=== PATIENT | female | born 1990 | race African-American/Black ===

== ENCOUNTER 2016-11-21 19:32 | Emergency (ER) | payer MEDICAID ==
[~2016-11-21 19:32] MED LIST: METR500T10 PO
[2016-11-21 19:34] VITALS: BP 109/62; PULSE 81; RESP 16; TEMP 98.6; O2SAT 100
== END 2016-11-21 20:53 | disposition left against medical advice (07) ==
LOC: NED 19:32
DX: R10.9 Unspecified abdominal pain (principal)
CPT/HCPCS: 99281

== ENCOUNTER 2016-12-11 17:23 | Emergency (ER) | payer OTHER, MEDICAID ==
[~2016-12-11] VITALS: Ht 167.6 cm; Wt 80.0 kg
[2016-12-11 17:25] VITALS: BP 113/68; PULSE 78; RESP 16; TEMP 98.5; O2SAT 100
--- NOTE | 2016-12-11 17:59 | PD ---
HPI Chief Complaint: Abdominal Pain Time Seen by Provider: 17:55 Travel History International Travel<30 days: No Contact w/Intl Traveler<30days: No Traveled to known affect area: No History of Present Illness HPI 25-year-old female patient with no significant past medical issues, presents to the ER today with 2 weeks history of nausea, lower abdominal pains, dysuria, which she currently rates at a 5 out of 10. She states that she is here today because it has not gone away. She denies any fevers, has had occasional vomiting, denies diarrhea and other symptoms. Modifying Factors: None Associated Signs & Symptoms: Nausea, vomiting, abdominal pains, urinary symptoms for 2 weeks Risk Factors: None PFSH Past Medical History Diabetes: Yes (WHEN ) Patient Takes Glucophage: No Diminished Hearing: No ?: Unknown LMP: OCTOBER Menopausal: No : 4 Para: 1 Miscarriage: 1 : 1 Dilation and Curettage (D&C): Yes (MOLAR JUL 2012) Past Surgical History Section: Yes Gynecologic Surgery: Yes ( HX X 1) Social History Alcohol Use: No (SOCIALLY) Tobacco Use: No Substance Use: No Allergies-Medications (Allergen,Severity, Reaction): Coded Allergies: Penicillin (Verified Allergy, Severe, HIVES, 12/11/16) Reported Meds & Prescriptions Reported Meds & Active Scripts Active Diflucan (Fluconazole) 150 Mg Tab 150 Mg PO ONCE Zofran Odt (Ondansetron Odt) 4 Mg Tab 4 Mg SL Q6HR PRN Macrobid (Nitrofurantoin Monoh/Nitrofur Macro) 100 Mg Cap 100 Mg PO BID 7 Days Review of Systems Except as stated in HPI: all other systems reviewed are Neg Physical Exam Narrative GENERAL: Well-developed young -[place] female patient currently in mild distress. Awake and oriented 3. SKIN: Focused skin assessment warm/dry. HEAD: Atraumatic. Normocephalic. EYES: Pupils equal and round. No scleral icterus. No injection or drainage. ENT: No nasal bleeding or discharge. Mucous membranes pink and moist. NECK: Trachea midline. No JVD. CARDIOVASCULAR: Regular rate and rhythm. No murmur appreciated. RESPIRATORY: No accessory muscle use. Clear to auscultation. Breath sounds equal bilaterally. GASTROINTESTINAL: Abdomen soft, mild suprapubic tenderness without guarding or rebound, nondistended. Hepatic and splenic margins not palpable. MUSCULOSKELETAL: No obvious deformities. No clubbing. No cyanosis. No edema. NEUROLOGICAL: Awake and alert. No obvious cranial nerve deficits. Motor grossly within normal limits. Normal speech. PSYCHIATRIC: Appropriate mood and affect; insight and judgment normal. Data Data Last Documented VS Vital Signs Date Time Temp Pulse Resp B/P Pulse Ox O2 Delivery O2 Flow Rate FiO2 12/11/16 17:25 98.5 78 16 113/68 100 Room Air Orders Complete Blood Count With Diff (12/11/16 17:50) Comprehensive Metabolic Panel (12/11/16 17:50) Lipase (12/11/16 17:50) Urinalysis - C+S If Indicated (12/11/16 17:50) Iv Access Insert/Monitor (12/11/16 17:50) Ecg Monitoring (12/11/16 17:50) Oximetry (12/11/16 17:50) Sodium Chloride 0.9% Flush (Ns Flush) (12/11/16 18:00) Ed Urine Pregnancytest Poc (12/11/16 17:50) Sodium Chlor 0.9% 1000 Ml Inj (Ns 1000 M (12/11/16 18:00) Ondansetron Inj (Zofran Inj) (12/11/16 18:00) Urine Culture (12/11/16 18:15) Labs Laboratory Tests Test 12/11/16 18:15 White Blood Count 3.8 TH/MM3 Red Blood Count 4.29 MIL/MM3 Hemoglobin 11.6 GM/DL Hematocrit 35.2 % Mean Corpuscular Volume 82.1 FL Mean Corpuscular Hemoglobin 26.9 PG Mean Corpuscular Hemoglobin 32.8 % Concent Red Cell Distribution Width 13.0 % Platelet Count 220 TH/MM3 Mean Platelet Volume 6.9 FL Neutrophils (%) (Auto) 38.5 % Lymphocytes (%) (Auto) 52.5 % Monocytes (%) (Auto) 5.6 % Eosinophils (%) (Auto) 2.5 % Basophils (%) (Auto) 0.9 % Neutrophils # (Auto) 1.5 TH/MM3 Lymphocytes # (Auto) 2.0 TH/MM3 Monocytes # (Auto) 0.2 TH/MM3 Eosinophils # (Auto) 0.1 TH/MM3 Basophils # (Auto) 0.0 TH/MM3 CBC Comment DIFF FINAL Differential Comment Urine Color YELLOW Urine Turbidity HAZY Urine pH 5.5 Urine Specific [place] 1.029 Urine Protein NEG mg/dL Urine Glucose (UA) NEG mg/dL Urine Ketones NEG mg/dL Urine Occult Blood NEG Urine Nitrite NEG Urine Bilirubin NEG Urine Urobilinogen LESS THAN 2.0 MG/DL Urine Leukocyte Esterase LARGE Urine RBC LESS THAN 1 /hpf Urine WBC 9 /hpf Urine Squamous Epithelial 6 /hpf Cells Urine Mucus FEW /lpf Microscopic Urinalysis Comment CULTURE INDICATED Sodium Level 139 MEQ/L Potassium Level 3.5 MEQ/L Chloride Level 106 MEQ/L Carbon Dioxide Level 25.6 MEQ/L Anion Gap 7 MEQ/L Blood Urea Nitrogen 17 MG/DL Creatinine 0.96 MG/DL Estimat Glomerular Filtration 86 ML/MIN Rate Random Glucose 67 MG/DL Calcium Level 8.3 MG/DL Total Bilirubin 0.5 MG/DL Aspartate Amino Transf 16 U/L (AST/SGOT) Alanine Aminotransferase 21 U/L (ALT/SGPT) Alkaline Phosphatase 41 U/L Total Protein 7.5 GM/DL Albumin 3.6 GM/DL Lipase 190 U/L [facility] Medical Decision Making Medical Screen Exam Complete: Yes Emergency Medical Condition: Yes Medical Record Reviewed: Yes Interpretation(s) Laboratory Tests Test 12/11/16 18:15 White Blood Count 3.8 TH/MM3 (4.0-11.0) Mean Corpuscular Hemoglobin 26.9 PG (27.0-34.0) Mean Platelet Volume 6.9 FL (7.0-11.0) Lymphocytes (%) (Auto) 52.5 % (9.0-44.0) Neutrophils # (Auto) 1.5 TH/MM3 (1.8-7.7) Urine Turbidity HAZY (CLEAR) Urine Leukocyte Esterase LARGE (NEG) Urine WBC 9 /hpf (0-5) Urine Mucus FEW /lpf (OCC) Estimat Glomerular Filtration 86 ML/MIN (>89) Rate Random Glucose 67 MG/DL (74-106) Calcium Level 8.3 MG/DL (8.5-10.1) Alkaline Phosphatase 41 U/L (45-117) Differential Diagnosis Nausea, vomiting, lower abdominal discomfort, urinary symptomsUTI versus gastroenteritis versus dehydration versus metabolic issues versus Narrative Course Abdomen is benign and I do not suspect an acute intra-abdominal process. She is not . She does have a UTI which could be causing some of her symptoms. At this point, my plan would be to release her with symptomatic relief and treatment for UTI. Follow-up with primary care physician. Return for worsening in symptoms as necessary. The plan has been discussed with her and she states understanding. Diagnosis Primary Impression: UTI (urinary tract infection) Med/Other Pt SpecificInfo: Prescription(s) given Scripts Fluconazole (Diflucan)150 Mg [id number] Mg PO ONCE #1 TAB Ref 0 Prov:Balbina Avery MD 12/11/16 Ondansetron Odt (Zofran Odt)4 Mg Tab4 Mg SL Q6HR PRN (Nausea/Vomiting) #7 TAB Ref 0 Prov:Balbina Avery MD 12/11/16 Nitrofurantoin Monohydrate Macrocrystals (Macrobid)100 Mg [id number] Mg PO BID 7 Days Ref 0 Prov:Balbina Avery MD 12/11/16 Disposition: 01 DISCHARGE HOME Condition: Stable Balbina Avery MD December 11, 2016 17:58
[2016-12-11] MEDS ORDERED: ONDANSETRON HCL 4 MG/2 ML VIAL IV PUSH ONE (18:00)
[2016-12-11] MEDS ORDERED: SODIUM CHLOR 0.9% 1000 ML INJ 1,000 ML IV ONE (18:00)
[2016-12-11] MEDS ORDERED: SODIUM CHLORIDE 0.9% FLUSH 10 ML FLUSH IV FLUSH PRN (18:00)
[2016-12-11 18:52] LABS: AUTOMATED NEUTROPHIL # 1.5 TH/MM3 (1.8-7.7); BASOPHIL % 0.9 % (0.0-2.0); EOSINOPHIL # 0.1 TH/MM3 (0-0.4); EOSINOPHIL % 2.5 % (0.0-4.0); HEMATOCRIT 35.2 % (35.0-46.0); HEMO FLAGS DIFF FINAL; LYMPH % 52.5 % (9.0-44.0); MEAN CELL VOLUME 82.1 FL (80.0-100.0); MEAN CORPUSCULAR HEMOGLOBIN 26.9 PG (27.0-34.0); MEAN CORPUSCULAR HGB CONC 32.8 % (32.0-36.0); MONO % 5.6 % (0.0-8.0); NEUT % 38.5 % (16.0-70.0); PLATELET COUNT 220 TH/MM3 (150-450); RED BLOOD COUNT 4.29 MIL/MM3 (4.00-5.30); WHITE BLOOD COUNT 3.8 TH/MM3 (4.0-11.0)
[2016-12-11 18:59] LABS: BLOOD, URINE NEG (NEG); COMMENT (UR) CULTURE INDICATED; CULTURE IF INDICATED CULTURE INDICATED; GLUCOSE,URINE NEG (NEG); KETONE, URINE NEG (NEG); MUCUS URINE FEW /lpf (OCC); NITRITE,URINE NEG (NEG); PH, URINE 5.5 (5.0-8.5); SQUAMOUS EPITHELIAL CELL URINE 6 /hpf (0-5); URINE COLOR YELLOW (YELLW/STRAW)
[2016-12-11 19:01] LABS: ANION GAP 7 MEQ/L (5-15); AST (GOT) 16 U/L (15-37); BICARBONATE 25.6 MEQ/L (21.0-32.0); BLOOD UREA NITROGEN 17 MG/DL (7-18); CHLORIDE 106 MEQ/L (98-107); GLOMERULAR FILTRATION RATE 86 ML/MIN (>89); POTASSIUM 3.5 MEQ/L (3.5-5.1); SODIUM (NA) 139 MEQ/L (136-145)
[2016-12-11 19:04] LABS: ALKALINE PHOSPHATASE 41 U/L (45-117); ALT (GPT) 21 U/L (10-53); TOTAL BILIRUBIN ADULT 0.5 MG/DL (0.2-1.0)
[2016-12-11] MEDS ORDERED: MACR100C2 PO (19:32)
[2016-12-11] MEDS ORDERED: ZOFR4TAB3 SL (19:32)
[2016-12-11] MEDS ORDERED: DIFL150T PO (19:34)
== END 2016-12-11 20:06 | disposition home or self-care (01) ==
LOC: NEPD 17:23
DX: N39.0 Urinary tract infection, site not specified (principal); B96.89 Other specified bacterial agents as the cause of diseases classified elsewhere
CPT/HCPCS: 80053; 81001; 83690; 84703; 85025; 87086; 96361; 96374; 99284; J2405; J7030

== ENCOUNTER 2017-05-20 20:33 | Emergency (ER) | payer MEDICAID, OTHER ==
[~2017-05-20] VITALS: Ht 167.6 cm; Wt 85.0 kg
[~2017-05-20 20:33] MED LIST changes: +DIFL150T PO; +MACR100C2 PO; -METR500T10 PO; +ZOFR4TAB3 SL
[2017-05-20 20:55] VITALS: BP 118/67; PULSE 83; RESP 18; TEMP 98.7; O2SAT 100
--- NOTE | 2017-05-20 23:50 | PD ---
HPI Chief Complaint: Abdominal Pain Time Seen by Provider: 23:38 Travel History International Travel<30 days: No Contact w/Intl Traveler<30days: No Traveled to known affect area: No History of Present Illness HPI 26 years old female complains of headache and also low abdominal pain and vaginal discharge. Patient states that she has lower abdominal discomfort and vaginal discharge for the past 6 months. Patient has been seen by personal physician and had Pap smear done which showed positive for HPV. Patient awaiting follow-up appointment. Patient states that she started having aching headache from the back of the head to the front for the past 2 weeks. Patient states that headache is aching headache intermittent headache. Patient denies any visual change. Patient denied nausea vomiting with headache. Patient denies any recent head injury. Patient denies any fever chills. Patient denies any neck pain. Patient denies any nausea vomiting diarrhea. Patient denies any dysuria or frequency. Patient denies any vaginal bleeding. Patient denies any chance of being . PFSH Past Medical History Diabetes: Yes (only gestational) Patient Takes Glucophage: No Diminished Hearing: No Immunizations Current: Yes Tetanus Vaccination: < 5 Years Influenza Vaccination: No ?: Not LMP: 05/12/2017 Menopausal: No : 4 Para: 1 Miscarriage: 1 : 1 Dilation and Curettage (D&C): Yes (MOLAR JUL 2012) Past Surgical History Section: Yes Gynecologic Surgery: Yes ( HX X 1) Social History Alcohol Use: No (SOCIALLY) Tobacco Use: No Substance Use: No Allergies-Medications (Allergen,Severity, Reaction): Coded Allergies: penicillin G (Unverified Allergy, Severe, HIVES, 03/22/17) Reported Meds & Prescriptions Reported Meds & Active Scripts Active Review of Systems General / Constitutional: No: Fever Eyes: No: Visual changes HENT: Positive: Headaches Cardiovascular: No: Chest Pain or Discomfort Respiratory: No: Shortness of Breath Gastrointestinal: No: Abdominal Pain Genitourinary: Positive: Discharge, No: Dysuria Musculoskeletal: No: Pain Skin: No Rash Neurologic: No: Weakness Psychiatric: No: Depression Endocrine: No: Polydipsia Hematologic/Lymphatic: No: Easy Bruising Physical Exam Narrative GENERAL: Well-nourished, well-developed patient. SKIN: Focused skin assessment warm/dry. HEAD: Normocephalic. EYES: No scleral icterus. No injection or drainage. NECK: Supple, trachea midline. No JVD or lymphadenopathy. CARDIOVASCULAR: Regular rate and rhythm without murmurs, gallops, or rubs. RESPIRATORY: Breath sounds equal bilaterally. No accessory muscle use. GASTROINTESTINAL: Abdomen soft, nondistended. Mild tenderness on palpation lower abdomen suprapubic area. No rebound tenderness. No mass. MUSCULOSKELETAL: No cyanosis, or edema. BACK: Nontender without obvious deformity. No CVA tenderness. Neurologic exam normal. Data Data Last Documented VS Vital Signs Date Time Temp Pulse Resp B/P (MAP) Pulse Ox O2 Delivery O2 Flow Rate FiO2 05/20/17 20:55 98.7 83 18 118/67 (84) 100 Orders Orders Gc And Chlamydia Pcr (05/20/17 23:46) Urinalysis - C+S If Indicated (05/20/17 23:46) Ct Brain W/O Iv Contrast(Rout) (05/20/17 23:50) Ed Urine Pregnancytest Poc (05/20/17 23:50) Labs Laboratory Tests Test 05/20/17 23:50 Urine Color YELLOW Urine Turbidity HAZY Urine pH 6.5 Urine Specific [place] 1.037 Urine Protein TRACE mg/dL Urine Glucose (UA) NEG mg/dL Urine Ketones NEG mg/dL Urine Occult Blood NEG Urine Nitrite NEG Urine Bilirubin NEG Urine Urobilinogen 2.0 MG/DL Urine Leukocyte Esterase NEG Urine RBC 2 /hpf Urine WBC 3 /hpf Urine Squamous Epithelial Cells 5 /hpf Urine Bacteria FEW /hpf Urine Hyaline Casts 1 /lpf Urine Mucus FEW /lpf Microscopic Urinalysis Comment CULT NOT INDICATED MDM Medical Decision Making Medical Screen Exam Complete: Yes Emergency Medical Condition: Yes Interpretation(s) Last Impressions Head CT 05/20/17 2870 Signed Impressions: Service Date/Time: Sunday, May 21, 2017 01:06 - CONCLUSION: Normal examination. Chema New MD UA is negative. Differential Diagnosis Differential diagnosis including migraine headache, tension headache, cluster headache, sinusitis, cervicitis, PID, ovarian cyst, ovarian torsion, ectopic . Narrative Course 26 years old female with headache and low abdominal pain and vaginal discharge. Diagnosis Primary Impression: Cephalgia Qualified Codes: R51 - Headache Additional Impression: Vaginal discharge Patient Instructions: General Instructions Additional Instructions: Take medications as directed. Follow-up with insurance examining clerk. Follow-up with personal physician for headache. Med/Other Pt SpecificInfo: Prescription(s) given Scripts Meloxicam (Mobic) 15 Mg Tab 15 MG PO DAILY for Pain, #20 TAB 0 Refills Prov: Bran Merrill MD 05/21/17 Disposition: 01 DISCHARGE HOME Condition: Stable Bran Merrill MD May 20, 2017 23:50
[2017-05-21 00:09] LABS: BLOOD, URINE NEG (NEG); GLUCOSE,URINE NEG (NEG); KETONE, URINE NEG (NEG); NITRITE,URINE NEG (NEG); PH, URINE 6.5 (5.0-8.5); URINE COLOR YELLOW (YELLW/STRAW)
[2017-05-21 00:10] LABS: BACTERIA, URINE FEW /hpf; COMMENT (UR) CULT NOT INDICATED; CULTURE IF INDICATED CULT NOT INDICATED; HYALINE CAST, URINE 1 /lpf (RARE); MUCUS URINE FEW /lpf (OCC); SQUAMOUS EPITHELIAL CELL URINE 5 /hpf (0-5)
--- NOTE | 2017-05-21 01:20 | RADRPT ---
EXAM DATE/TIME: 05/21/2017 01:06 [facility] COMPARISON: No previous studies available for comparison. INDICATIONS : Cephalgia. RADIATION DOSE: 37.19 CTDIvol (mGy) MEDICAL HISTORY : None SURGICAL HISTORY : None. ENCOUNTER: Initial ACUITY: 1 day PAIN SCALE: 7/10 LOCATION: cranial TECHNIQUE: Multiple contiguous axial images were obtained of the head. Using automated exposure control and adj ustment of the mA and/or kV according to patient size, radiation dose was kept as low as reasonably a chievable to obtain optimal diagnostic quality images. DICOM format image data is available electro nically for review and comparison. FINDINGS: CEREBRUM: The ventricles are normal for age. No evidence of midline shift, mass lesion, hemorrhage or acute in farction. No extra-axial fluid collections are seen. POSTERIOR FOSSA: The cerebellum and brainstem are intact. The 4th ventricle is midline. The cerebellopontine angle i s unremarkable. EXTRACRANIAL: The visualized portion of the orbits is intact. SKULL: The calvaria is intact. No evidence of skull fracture. CONCLUSION: Normal examination. Chema New MD on May 21, 2017 at 1:17 Board Certified Radiologist. This report was verified electronically.
[2017-05-21] MEDS ORDERED: MOBI15TA PO (01:40)
[2017-05-21 03:10] LABS: CHLAMYDIA PCR NOT DETECTED (NOT DETECT); NEISSERIA PCR NOT DETECTED (NOT DETECT)
== END 2017-05-21 01:57 | disposition home or self-care (01) ==
LOC: NEPE 20:33
DX: N89.8 Other specified noninflammatory disorders of vagina (principal); R51 Headache; R10.30 Lower abdominal pain, unspecified; Z88.0 Allergy status to penicillin; A63.0 Anogenital (venereal) warts
CPT/HCPCS: 70450; 81001; 84703; 87491; 87591